=== PATIENT | female | born 1950 | race Caucasian/White ===

== ENCOUNTER 2021-12-29 09:33 | Inpatient (IN) | payer MEDICARE, BC, SELFPAY ==
[2021-12-29] VITALS (16 sets, daily range): BP systolic 113–141; BP diastolic 67–116; PULSE 85–129; RESP 10–22; TEMP 36.4–37; O2SAT 91–97; BMI 25.1; BMI 28.9
--- NOTE | 2021-12-29 09:49 | CRLHL7_ITS ---
For Patients: As a result of the Cures Act, medical imaging exams and procedure reports are released immediately into your electronic medical record. You may view this report before your referring provider. If you have questions, please contact your health care provider. INDICATION: CHEST PAIN, SOB TECHNIQUE: Chest 2 views COMPARISON: None FINDINGS: Thickening of the interlobular septa noted bilaterally with associated bronchial wall thickening in both upper lobes. No air bronchograms. No pneumothorax. Prominence of the velia. No fracture. Cardiac silhouette is upper limits normal. IMPRESSION: Multifocal bronchiolitis is present bilaterally with associated reticular prominence in both upper lobes suggesting atypical/viral infiltrates. There may be underlying fibrotic changes. Dictated by Samy Hansen MD @ 12/29/2021 11:03:00 AM (Electronically Signed)
[2021-12-29] MEDS: 0.9 % SODIUM CHLORIDE 500 ML 500 ML IV (10:15)
[2021-12-29 10:16] LABS: Lactate* 1.1 mmol/L (0.5-1.9)
[2021-12-29] MEDS: dilTIAZem 5 MG/ML inj 10 MG IVP (10:16)
[2021-12-29 10:18] LABS: Basophils Absolute Auto 0.02 K/uL (0.00-0.30); Basophils Percent Auto 0.2 % (0.0-3.0); Eosinophils Absolute Auto 0.22 K/uL (0.00-0.50); Eosinophils Percent Auto 2.2 % (0.0-7.0); Hemoglobin* 11.5 gm/dL (12.0-16.0); Immature Granulocytes Abs Auto 0.02 K/uL (0.00-0.30); Mean Corpuscular HGB Conc 31 gm/dL (32-36); Mean Corpuscular Hemoglobin 27 pg (26-34); Mean Corpuscular Volume 87 fL (80-100); Monocytes Percent Auto 7.2 % (0.0-11.0); Neutrophils Percent Auto 77.2 % (42.0-72.0); Platelet Count* 286 K/uL (140-440); RDW Coefficient of Variation % 17.4 % (11.5-15.5); Red Blood Count 4.24 m/uL (4.00-5.20); White Blood Count* 10.12 K/uL (4.50-11.00)
[2021-12-29 10:24] LABS: Slide Review Reflex No
[2021-12-29 10:34] LABS: Albumin* 2.9 g/dL (3.3-5.0); Chloride* 101 mmol/L (96-114)
[2021-12-29 10:35] LABS: Potassium* 4.6 mmol/L (3.6-5.1); Sodium* 135 mmol/L (135-149)
[2021-12-29 10:37] LABS: Alkaline Phosphatase* 143 U/L (40-150); Aspartate Amino Transferase* 40 U/L (12-35); Bilirubin Direct* 0.2 mg/dL (0.0-0.5); Bilirubin Total* 0.6 mg/dL (0.1-1.5); Blood Urea Nitrogen* 31 mg/dL (7-30); Carbon Dioxide* 31 mmol/L (20-32); Creatinine* 0.6 mg/dL (0.5-1.5); Est. Creatinine Clearance* 50.18; Estimated Glomerular Filt Rate 96 ml/min; Total Protein* 6.8 g/dL (6.0-8.3)
[2021-12-29 10:38] LABS: Alanine Aminotransferase* 19 U/L (4-35); Calcium* 8.5 mg/dL (8.4-10.6); Glucose* 175 mg/dL (60-115)
[2021-12-29 10:40] LABS: C Reactive Protein* 5.1 mg/dL (0.5-1.0)
[2021-12-29 10:49] LABS: Troponin I* 0.01 ng/mL (0.01-0.04)
[2021-12-29 10:59] LABS: PCR FLU A Negative PCR FLU A (Negative); PCR FLU B Negative PCR FLU B (Negative)
[2021-12-29 11:00] LABS: Erythrocyte SedimentationRate* 85 mm/hr (2-20)
[2021-12-29 11:02] LABS: SARS PCR* Negative SARS-CoV-2 (Negative)
[2021-12-29 11:32] LABS: INR 3.96 (0.91-1.10); Prothrombin Time 38.9 Seconds
[2021-12-29 11:48] LABS: NT Pro B Type NatriureticPept* 7440 PG/mL (0-125)
[2021-12-29 11:56] LABS: Appearance Urine Clear (Clear); Bilirubin Urine Negative (Negative); Blood Urine Negative (Negative); Color Urine Yellow (Yellow); Glucose Urine Negative (Negative); Ketones Urine Negative (Negative); Leukocyte Esterase Urine Trace (Negative); Nitrite Urine Negative (Negative); Protein Urine 3+ (Negative); Urobilinogen Urine 0.2 (0.2-1.0)
[2021-12-29 12:20] LABS: RBC Urine 0-2 (0-2); WBC Urine 0-2 (0-5)
[2021-12-29 12:21] LABS: Squamous Epithelial Cell Urine Few (None-Few)
--- NOTE | 2021-12-29 12:50 | ED_ITS ---
HPI - General Adult General Chief complaint: Arrhythmia/Palpitations Stated complaint: heart issue Time Seen by Provider: 12/29/21 09:44 History of Present Illness HPI narrative: 71-year-old female coming in today with concerns about a fast heart rate. She is a resident at [facility], nursing staff called earlier today concerned that her pulse was in the 130s and that she had mottled skin. Patient herself states that she feels fine. She denies any chest pain or shortness of breath. No headaches blurry vision. Denies any abdominal discomfort. She does not feel any palpitations or heart racing. She was recently hospitalized for UTI and sepsis. She also had AFib at that time and is on anticoagulation. She was taking metoprolol 100 mg p.o. b.i.d. and that was decreased to 75 mg p.o. b.i.d. on December 25. Related Data Home Medications Medication Instructions Recorded Confirmed acetaminophen 500 mg tablet (Pain 1,000 mg PO TID PRN 12/29/21 12/29/21 Reliever Extra Strength) aspirin 81 mg tablet,delayed 81 mg PO DAILY 12/29/21 12/29/21 release blood sugar diagnostic (OneTouch 12/29/21 12/29/21 Verio test strips) bupropion HCl 300 mg 24 hr tablet, 300 mg PO DAILY 12/29/21 12/29/21 extended release cholecalciferol (vitamin D3) 50 2,000 unit PO DAILY 12/29/21 12/29/21 mcg (2,000 unit) capsule (Vitamin D3) duloxetine 60 mg capsule,delayed 120 mg PO DAILY 12/29/21 12/29/21 release furosemide 20 mg tablet 60 mg PO QAM 12/29/21 12/29/21 gabapentin 300 mg capsule 300 mg PO DAILY 12/29/21 12/29/21 insulin glargine 100 unit/mL 30 unit subcut DAILY 12/29/21 12/29/21 subcutaneous solution insulin lispro 100 unit/mL 1 sliding scale dose continuous 12/29/21 12/29/21 subcutaneous solution subcutaneous infusion TIDWMEAL metoprolol tartrate 75 mg tablet 75 mg PO BID 12/29/21 12/29/21 rosuvastatin 10 mg tablet 10 mg PO HS 12/29/21 12/29/21 sennosides 8.6 mg tablet (senna) 8.6 mg PO BID 12/29/21 12/29/21 warfarin 1 mg tablet 0.5 mg PO QPM 12/29/21 12/29/21 warfarin 2 mg tablet 2 mg PO MOTUTH 12/29/21 12/29/21 Allergies Allergy/AdvReac Type Severity Reaction Status Date / Time atorvastatin [From Lipitor] Allergy Unknown Verified 12/29/21 09:43 metformin Allergy Unknown Verified 12/29/21 09:43 pravastatin Allergy Unknown Verified 12/29/21 09:43 Review of Systems Status of ROS: Reports: 10 or more systems reviewed and unremarkable except as noted in History and below [facility] Medical History (Updated 12/29/21 @ 13:50 by Ismael Johansen MD) Anxiety At risk for falling Cognitive impairment Coronary artery disease Depression Fibromyalgia Foot ulcer, left Gastroesophageal reflux disease Heart failure with preserved ejection fraction History of poliomyelitis Hyperlipidemia Insomnia Osteoarthritis Pulmonary disease Recurrent urinary tract infection Reflex sympathetic dystrophy Sensorineural hearing loss Type 2 diabetes mellitus Vitamin D deficiency Surgical History History of appendectomy History of arthroscopy of left knee History of colonoscopy History of coronary artery stent placement History of hysterectomy Family History (Updated 12/29/21 @ 13:45 by Ismael Johansen MD) Mother Breast cancer Coronary artery disease Diabetes Brother Coronary artery disease Social History (Updated 12/29/21 @ 13:46 by Ismael Johansen MD) Narrative: She is a former smoker having smoked from 1959 to 2021 about 1 pack of cigarettes a day. She does not drink alcohol. Code status is full. Healthcare power of disability attorney is her or her daughter Radha. Currently lives at [facility]. Her goal is to return home with her . She walks with a walker. Smoking Status: Former smoker How often do you have a drink containing alcohol: never AUDIT-C Alcohol total score: 0 Non-prescribed substance use: denies use Exam Narrative: Exam Narrative: Well-nourished well-developed elderly patient in no acute distress. Alert and oriented x3. Answers questions appropriately. Mood and affect are appropriate. Thoughts are goal oriented and rational. No tangential or magical thinking noted. Patient speaks in full sentences without needing to catch her breath. HEENT: Normocephalic atraumatic. Pupils are equally round reactive to light. Extraocular muscles are intact. Conjunctivae are moist without any icterus noted. Dry membranes. Neck is soft without any lymphadenopathy or thyromegaly. No masses are appreciated. Cardiovascular: Heart is regular rate and rhythm S1 and S2 are present without any murmurs. Lungs: Bilateral crackles are appreciated. Patient takes deep breaths without any discomfort. Abdomen: Soft and nontender nondistended with normal bowel sounds. No guarding or rebound. Extremities: Bilateral lower extremities have trace edema. Normal DP and PT pulses. Skin: Well perfused without any obvious rashes. Const: Vital Signs, click to edit/add: Vital Signs - 24 hr 12/29/21 09:37 12/29/21 09:44 12/29/21 10:20 Temperature 97.7 F 97.7 F Pulse Rate [Pulse Oximeter] 129 H 129 H 87 Respiratory Rate 14 14 14 Blood Pressure [Le ft Upper Arm] 141/116 H 141/116 H 124/67 Pulse Oximetry 91 91 94 Oxygen Delivery Me thod Room Air Room Air Room Air Oxygen Flow Rate 12/29/21 12:45 Temperature Pulse Rate [Pulse Oximeter] Respiratory Rate 20 Blood Pressure [Le ft Upper Arm] Pulse Oximetry 92 Oxygen Delivery Me thod Nasal Cannula Oxygen Flow Rate 1 Course Course Hospital Course: EKG was done upon arrival showing atrial flutter with a pulse of 119. Pulse ranged from 1 teens to the 130s. Blood pressure remained stable. IV was established and patient received 10 mg of IV Cardizem which brought her pulse into the 80s and 90s. We also started 500 mL of normal saline. BNP is elevated, CRP slightly elevated. Labs otherwise generally unremarkable. When patient would fall asleep she would desaturate into the upper 80s. Remained around 90-91% on room air while awake. Reevaluation(s) Reevaluation #1: Unfortunately patient would drop to 77% on room air with ambulation. Vital Signs Vital signs: Initial Vital Signs Temperature 97.7 F 12/29/21 09:37 Temperature Source Temporal Artery Scan 12/29/21 09:37 Pulse Rate 129 H 12/29/21 09:37 Pulse Rhythm 12/29/21 09:37 Pulse Strength 2+ Slightly Diminished 12/29/21 09:37 Respiratory Rate 14 12/29/21 09:37 Blood Pressure 141/116 H 12/29/21 09:37 Blood Pressure Mean 124 12/29/21 09:37 Blood Pressure Position Supine 12/29/21 09:37 Pulse Oximetry 91 12/29/21 09:37 Oxygen Delivery Method 12/29/21 09:37 Vital Signs Temperature 97.7 F 12/29/21 09:37 Pulse Rate 129 H 12/29/21 09:37 Respiratory Rate 14 12/29/21 09:37 Blood Pressure 141/116 H 12/29/21 09:37 Pulse Oximetry 91 12/29/21 09:37 Oxygen Delivery Method 12/29/21 09:37 Temperature 97.7 F 12/29/21 09:44 Pulse Rate 87 12/29/21 10:20 Respiratory Rate 20 12/29/21 12:45 Blood Pressure 124/67 12/29/21 10:20 Pulse Oximetry 92 12/29/21 12:45 Oxygen Delivery Method 12/29/21 12:45 Oxygen Flow Rate 1 12/29/21 12:45 Medical Decision Making MDM Narrative Medical decision making narrative: Mentally female with atrial flutter with rapid ventricular response, supratherapeutic INR, hypoxia, history of congestive heart failure. Patient will be admitted for observation today. Dr. Johansen accepting the patient. Medical Records Medical records reviewed: Yes I reviewed the patient's medical records Lab Data Lab results reviewed: Yes I reviewed the patient's lab results Labs: Lab Results 12/29/21 12/29/21 12/29/21 Range/Units 10:10 10:10 10:10 WBC 10.12 (4.50-11.00) K/uL RBC 4.24 (4.00-5.20) m/uL Hgb 11.5 L (12.0-16.0) gm/dL Hct 37.0 (33.0-51.0) % MCV 87 (80-100) fL MCH 27 (26-34) pg MCHC 31 L (32-36) gm/dL RDW Coeff of Asiya 17.4 H (11.5-15.5) % Plt Count 286 (140-440) K/uL Neut % (Auto) 77.2 H (42.0-72.0) % Lymph % (Auto) 13.0 L (20-44) % Vilas % (Auto) 7.2 (0.0-11.0) % Eos % (Auto) 2.2 (0.0-7.0) % Baso % (Auto) 0.2 (0.0-3.0) % Neut # (Auto) 7.80 H (1.7-7.0) K/uL Lymph # (Auto) 1.30 (0.90-2.90) K/uL Vilas # (Auto) 0.70 (0.00-0.90) K/UL Eos # (Auto) 0.22 (0.00-0.50) K/uL Baso # (Auto) 0.02 (0.00-0.30) K/uL Abs Immat Gran (auto) 0.02 (0.00-0.30) K/uL ESR 85 H (2-20) mm/hr INR (0.91-1.10) Sodium 135 (135-149) mmol/L Potassium 4.6 (3.6-5.1) mmol/L Chloride 101 (96-114) mmol/L Carbon Dioxide 31 (20-32) mmol/L BUN 31 H (7-30) mg/dL Creatinine 0.6 (0.5-1.5) mg/dL Estimated Creat Clear 50.18 Estimated GFR 96 ml/min Glucose 175 H (60-115) mg/dL Lactate (0.5-1.9) mmol/L Calcium 8.5 (8.4-10.6) mg/dL Total Bilirubin 0.6 (0.1-1.5) mg/dL Direct Bilirubin 0.2 (0.0-0.5) mg/dL AST 40 H (12-35) U/L ALT 19 (4-35) U/L Alkaline Phosphatase 143 (40-150) U/L Troponin I 0.01 (0.01-0.04) ng/mL C-Reactive Protein 5.1 H (0.5-1.0) mg/dL NT-Pro-B Natriuret Pep 7440 H (0-125) PG/mL Total Protein 6.8 (6.0-8.3) g/dL Albumin 2.9 L (3.3-5.0) g/dL Urine Color (Yellow) Urine Appearance (Clear) Urine pH (5.0-8.5) Ur Specific Ripley (1.000-1.030) Urine Protein (Negative) Urine Glucose (UA) (Negative) Urine Ketones (Negative) Urine Blood (Negative) Urine Nitrite (Negative) Urine Bilirubin (Negative) Urine Urobilinogen (0.2-1.0) Ur Leukocyte Esterase (Negative) Urine RBC (0-2) Urine WBC (0-5) Ur Squamous Epith Cells (None-Few) Urine Bacteria (None) SARS-CoV-2 (PCR) (Negative) Influenza Type A (PCR) (Negative) Influenza Type B (PCR) (Negative) 12/29/21 12/29/21 12/29/21 Range/Units 10:10 10:10 11:07 WBC (4.50-11.00) K/uL RBC (4.00-5.20) m/uL Hgb (12.0-16.0) gm/dL Hct (33.0-51.0) % MCV (80-100) fL MCH (26-34) pg MCHC (32-36) gm/dL RDW Coeff of Asiya (11.5-15.5) % Plt Count (140-440) K/uL Neut % (Auto) (42.0-72.0) % Lymph % (Auto) (20-44) % Vilas % (Auto) (0.0-11.0) % Eos % (Auto) (0.0-7.0) % Baso % (Auto) (0.0-3.0) % Neut # (Auto) (1.7-7.0) K/uL Lymph # (Auto) (0.90-2.90) K/uL Vilas # (Auto) (0.00-0.90) K/UL Eos # (Auto) (0.00-0.50) K/uL Baso # (Auto) (0.00-0.30) K/uL Abs Immat Gran (auto) (0.00-0.30) K/uL ESR (2-20) mm/hr INR 3.96 H (0.91-1.10) Sodium (135-149) mmol/L Potassium (3.6-5.1) mmol/L Chloride (96-114) mmol/L Carbon Dioxide (20-32) mmol/L BUN (7-30) mg/dL Creatinine (0.5-1.5) mg/dL Estimated Creat Clear Estimated GFR ml/min Glucose (60-115) mg/dL Lactate 1.1 (0.5-1.9) mmol/L Calcium (8.4-10.6) mg/dL Total Bilirubin (0.1-1.5) mg/dL Direct Bilirubin (0.0-0.5) mg/dL AST (12-35) U/L ALT (4-35) U/L Alkaline Phosphatase (40-150) U/L Troponin I (0.01-0.04) ng/mL C-Reactive Protein (0.5-1.0) mg/dL NT-Pro-B Natriuret Pep (0-125) PG/mL Total Protein (6.0-8.3) g/dL Albumin (3.3-5.0) g/dL Urine Color (Yellow) Urine Appearance (Clear) Urine pH (5.0-8.5) Ur Specific Ripley (1.000-1.030) Urine Protein (Negative) Urine Glucose (UA) (Negative) Urine Ketones (Negative) Urine Blood (Negative) Urine Nitrite (Negative) Urine Bilirubin (Negative) Urine Urobilinogen (0.2-1.0) Ur Leukocyte Esterase (Negative) Urine RBC (0-2) Urine WBC (0-5) Ur Squamous Epith Cells (None-Few) Urine Bacteria (None) SARS-CoV-2 (PCR) Negative SARS-CoV-2 (Negative) Influenza Type A (PCR) Negative PCR FLU A (Negative) Influenza Type B (PCR) Negative PCR FLU B (Negative) 12/29/21 Range/Units 11:40 WBC (4.50-11.00) K/uL RBC (4.00-5.20) m/uL Hgb (12.0-16.0) gm/dL Hct (33.0-51.0) % MCV (80-100) fL MCH (26-34) pg MCHC (32-36) gm/dL RDW Coeff of Asiya (11.5-15.5) % Plt Count (140-440) K/uL Neut % (Auto) (42.0-72.0) % Lymph % (Auto) (20-44) % Vilas % (Auto) (0.0-11.0) % Eos % (Auto) (0.0-7.0) % Baso % (Auto) (0.0-3.0) % Neut # (Auto) (1.7-7.0) K/uL Lymph # (Auto) (0.90-2.90) K/uL Vilas # (Auto) (0.00-0.90) K/UL Eos # (Auto) (0.00-0.50) K/uL Baso # (Auto) (0.00-0.30) K/uL Abs Immat Gran (auto) (0.00-0.30) K/uL ESR (2-20) mm/hr INR (0.91-1.10) Sodium (135-149) mmol/L Potassium (3.6-5.1) mmol/L Chloride (96-114) mmol/L Carbon Dioxide (20-32) mmol/L BUN (7-30) mg/dL Creatinine (0.5-1.5) mg/dL Estimated Creat Clear Estimated GFR ml/min Glucose (60-115) mg/dL Lactate (0.5-1.9) mmol/L Calcium (8.4-10.6) mg/dL Total Bilirubin (0.1-1.5) mg/dL Direct Bilirubin (0.0-0.5) mg/dL AST (12-35) U/L ALT (4-35) U/L Alkaline Phosphatase (40-150) U/L Troponin I (0.01-0.04) ng/mL C-Reactive Protein (0.5-1.0) mg/dL NT-Pro-B Natriuret Pep (0-125) PG/mL Total Protein (6.0-8.3) g/dL Albumin (3.3-5.0) g/dL Urine Color Yellow (Yellow) Urine Appearance Clear (Clear) Urine pH 7.0 (5.0-8.5) Ur Specific Ripley 1.020 (1.000-1.030) Urine Protein 3+ A (Negative) Urine Glucose (UA) Negative (Negative) Urine Ketones Negative (Negative) Urine Blood Negative (Negative) Urine Nitrite Negative (Negative) Urine Bilirubin Negative (Negative) Urine Urobilinogen 0.2 (0.2-1.0) Ur Leukocyte Esterase Trace A (Negative) Urine RBC 0-2 (0-2) Urine WBC 0-2 (0-5) Ur Squamous Epith Cells Few (None-Few) Urine Bacteria None (None) SARS-CoV-2 (PCR) (Negative) Influenza Type A (PCR) (Negative) Influenza Type B (PCR) (Negative) Imaging Data Chest x-ray: Attestation: I have reviewed the pertinent imaging results. Radiologist's impression: FINDINGS: Thickening of the interlobular septa noted bilaterally with associated bronchial wall thickening in both upper lobes. No air bronchograms. No pneumothorax. Prominence of the velia. No fracture. Cardiac silhouette is upper limits normal. IMPRESSION: Multifocal bronchiolitis is present bilaterally with associated reticular prominence in both upper lobes suggesting atypical/viral infiltrates. There may be underlying fibrotic changes. ECG Data Attestation: I personally reviewed and interpreted this ECG as follows: (Atrial flutter pulse 119) Discharge Plan Discharge Clinical Impression: Supratherapeutic INR, Atrial flutter with rapid ventricular response, Hypoxia Patient Disposition: [facility] Condition: Improved
--- NOTE | 2021-12-29 13:04 | W.PC.EDHO ---
Primary Language: Preferred Language: Orientation Status: [X] Alert & Oriented [] Slight Confusion [] Known Dx Dementia Transfers By: [X] Assist of 1; with walker and gait belt [] Assist of 2 [] Lift Active Medications Discontinued Medications Generic Name Dose Route Start Last Admin Trade Name Mario PRN Reason Stop Dose Admin Diltiazem HCl 10 mg 12/29/21 09:48 12/29/21 10:16 Diltiazem 5 Mg/Ml Inj IVP 12/29/21 09:49 10 mg ONCE ONE Administration Sodium Chloride 500 mls @ 500 mls/hr 12/29/21 09:48 12/29/21 11:15 0.9 % Sodium Chloride 500 Ml IV 12/29/21 10:47 Infused .Q1H ONE Infusion Metoprolol Succinate 25 mg 12/29/21 10:40 12/29/21 11:12 Metoprolol Succinate (Xl) 25 Mg Tab PO 12/29/21 10:41 Not Given ONCE ONE Description of Symptoms ED Triage Present Problem Pt here via EMS from [facility]--in Description transitional rehab for dx falls, UTI. ED Triage Present Problem Pt here via EMS from [facility]--in Description transitional rehab for dx falls, UTI. Staff noted mottling on LE, discoloration on UE. Also noted increase HR of 130s (Pt has hx of afib with RVR). Denies CP, SOB, any pain. Per EMS, Pt has hx of recent dx issues with ejection fraction). IV Insertion/Site Date of IV Line Insertion [ 12/29/21 Right Antecubital] Oxygen Administration Pulse Oximetry 94 Pulse Oximetry 91 Pulse Oximetry 91 Oxygen Delivery Method Room Air Oxygen Delivery Method Room Air Oxygen Delivery Method Room Air Cardiac Monitoring EKG Method [employer] EKG Method 12 Lead
--- NOTE | 2021-12-29 13:37 | P.IMHP_ITS ---
Hospitalist- H&P: HPI History of Present Illness Date Seen: 12/29/21 Chief complaint: heart issue Narrative: Danielle Gonzalez is a 71 year old female resident of [facility] who was transferred here because of tachycardia and not feeling good. She has had hospitalizations at [facility] November 02 to 11/04/2021 for sepsis due to urinary tract infection. At that time she was also evaluated and treated for atrial flutter with RVR. She was rehospitalized at [place] [id number] December 10 to 12/15/2021 with hypoglycemia and atrial flutter with RVR. She was started on digoxin in addition to her metoprolol and got good rate control. She was then transferred to [facility] for rehabilitation on metoprolol alone. Her diuretic was also discontinued. Twelve days ago furosemide 40 mg daily was started. Few days ago her metoprolol dose was increased from 100 mg daily to 75 mg twice daily. Today staff note that she had mottled cool extremities and rapid heart rate and sent her to the emergency room for evaluation. Patient notes that she is not aware of her heart racing. She does not have chest pain. She does report significant dyspnea with any exertion. She is not aware of fever, cold, cough, shortness of breath at rest, orthopnea, chest pain, nausea, vomiting, abdominal pain, urinary symptoms, diarrhea or constipation. Review of Systems Narrative: Patient reports some fatigue and malaise along with her exertional dyspnea. She otherwise is not aware of any other significant problems. [facility] Medical History (Updated 12/29/21 @ 13:50 by Ismael Johansen MD) Anxiety At risk for falling Cognitive impairment Coronary artery disease Depression Fibromyalgia Foot ulcer, left Gastroesophageal reflux disease Heart failure with preserved ejection fraction History of poliomyelitis Hyperlipidemia Insomnia Osteoarthritis Pulmonary disease Recurrent urinary tract infection Reflex sympathetic dystrophy Sensorineural hearing loss Type 2 diabetes mellitus Vitamin D deficiency Surgical History History of appendectomy History of arthroscopy of left knee History of colonoscopy History of coronary artery stent placement History of hysterectomy Family History (Updated 12/29/21 @ 13:45 by Ismael Johansen MD) Mother Breast cancer Coronary artery disease Diabetes Brother Coronary artery disease Social History (Updated 12/29/21 @ 13:46 by Ismael Johansen MD) Narrative: She is a former smoker having smoked from 1959 to 2021 about 1 pack of cigarettes a day. She does not drink alcohol. Code status is full. Healthcare power of deputy commonwealth's attorney is her or her daughter Radha. Currently lives at the [facility]. Her goal is to return home with her . She walks with a walker. Smoking Status: Former smoker How often do you have a drink containing alcohol: never AUDIT-C Alcohol total score: 0 Non-prescribed substance use: denies use Meds Home Medications and Allergies Home Medications Medication Instructions Recorded Confirmed Type acetaminophen 500 mg tablet (Pain 1,000 mg PO TID PRN 12/29/21 12/29/21 History Reliever Extra Strength) aspirin 81 mg tablet,delayed 81 mg PO DAILY 12/29/21 12/29/21 History release blood sugar diagnostic (OneTouch 12/29/21 12/29/21 History Verio test strips) bupropion HCl 300 mg 24 hr tablet, 300 mg PO DAILY 12/29/21 12/29/21 History extended release cholecalciferol (vitamin D3) 50 2,000 unit PO DAILY 12/29/21 12/29/21 History mcg (2,000 unit) capsule (Vitamin D3) duloxetine 60 mg capsule,delayed 120 mg PO DAILY 12/29/21 12/29/21 History release furosemide 20 mg tablet 60 mg PO QAM 12/29/21 12/29/21 History gabapentin 300 mg capsule 300 mg PO DAILY 12/29/21 12/29/21 History insulin glargine 100 unit/mL 30 unit subcut DAILY 12/29/21 12/29/21 History subcutaneous solution insulin lispro 100 unit/mL 12/29/21 History subcutaneous solution metoprolol tartrate 75 mg tablet 75 mg PO BID 12/29/21 12/29/21 History rosuvastatin 10 mg tablet 10 mg PO HS 12/29/21 12/29/21 History sennosides 8.6 mg tablet (senna) 8.6 mg PO BID 12/29/21 12/29/21 History warfarin 1 mg tablet mg 12/29/21 History warfarin 2 mg tablet mg 12/29/21 History Allergies Allergy/AdvReac Type Severity Reaction Status Date / Time atorvastatin [From Lipitor] Allergy Unknown Verified 12/29/21 09:43 metformin Allergy Unknown Verified 12/29/21 09:43 pravastatin Allergy Unknown Verified 12/29/21 09:43 Exam Narrative: Exam Narrative: She is alert and appears in no obvious distress. Eyes are normal. Sclerae nonicteric. Pupils are equal round reactive to light. Extraocular movements are full. No facial asymmetry. Dry mucous membranes. Neck is supple without mass or adenopathy. Respirations are diminished but without wheezing rales or rhonchi. Cardiovascular: S1, S2, irregularly irregular. Mild tachycardia. No gallop or rub. Abdomen: Bowel sounds active. Abdomen is soft without tenderness or mass. Extremities are cool to touch. She has some cyanosis of her toes and fingers. Sluggish capillary refill. Intact pulses. On inspection I notice significant asymmetry between her left leg and her right leg. She tells me this is a sequelae of childhood polio. Fairly good strength in her lower extremities bilaterally consistent with asymmetric muscle mass. No significant edema. Const: Vital Signs, click to edit/add: Vital Signs - 24 hr 12/29/21 09:37 12/29/21 09:44 12/29/21 10:20 Temperature 97.7 F 97.7 F Pulse Rate [Pulse Oximeter] 129 H 129 H 87 Respiratory Rate 14 14 14 Blood Pressure [Le ft Upper Arm] 141/116 H 141/116 H 124/67 Pulse Oximetry 91 91 94 Oxygen Delivery Me thod Room Air Room Air Room Air Documenting provider has reviewed patient's vital signs: yes Hospitalist - H&P: Result Labs Labs: Short CBC 12/29/21 Range/Units 10:10 WBC 10.12 (4.50-11.00) K/uL Hgb 11.5 L (12.0-16.0) gm/dL Hct 37.0 (33.0-51.0) % Plt Count 286 (140-440) K/uL BMP 12/29/21 10:10 Sodium 135 Potassium 4.6 Chloride 101 Carbon Dioxide 31 BUN 31 H Creatinine 0.6 Glucose 175 H Calcium 8.5 Cardiac Enzymes 12/29/21 Range/Units 10:10 Troponin I 0.01 (0.01-0.04) ng/mL Liver Function 12/29/21 Range/Units 10:10 Total Bilirubin 0.6 (0.1-1.5) mg/dL Direct Bilirubin 0.2 (0.0-0.5) mg/dL AST 40 H (12-35) U/L ALT 19 (4-35) U/L Alkaline Phosphatase 143 (40-150) U/L Albumin 2.9 L (3.3-5.0) g/dL Urine 12/29/21 Range/Units 11:40 Urine Color Yellow (Yellow) Urine Appearance Clear (Clear) Urine pH 7.0 (5.0-8.5) Ur Specific [place] 1.020 (1.000-1.030) Urine Protein 3+ A (Negative) Urine Glucose (UA) Negative (Negative) Assessment and Plan Assessment and plan (1) Atrial flutter with rapid ventricular response: Status: Acute Assessment and Plan: Heart rate poorly controlled on presentation. She received diltiazem with a good response. Blood pressure is borderline. Will continue oral diltiazem plus oral metoprolol to see if adequate rate control can be achieved. She appears clinically did dehydrated to me with her poor perfusion and dry mucous membranes. Will try a small fluid bolus to see if she is responsive to that and improving her perfusion. May help her heart rate as well. Recheck echocardiogram. May require digoxin for heart rate control depending on blood pressure response to diltiazem (2) Hypoxia: Status: Acute Assessment and Plan: Oxygen sats are borderline normal. Secondhand report indicates hypoxia at night.? Sleep apnea (3) Supratherapeutic INR: Status: Acute Assessment and Plan: Continue a warfarin to achieve a INR of 2-3 (4) Foot ulcer, left: Status: Acute Assessment and Plan: Left foot ulcer is apparently chronic. Routine wound care (5) Heart failure with preserved ejection fraction: Status: Acute Assessment and Plan: Repeat echo. In [place] there was an echocardiogram which showed preserved ejection fraction (6) At risk for falling: Status: Acute Assessment and Plan: PT and OT to assess and treat Plan She will be admitted to the hospital for evaluation and management of her atrial flutter with rapid ventricular response, heart failure, hypoxia, poor perfusion and borderline blood pressure. Total time spent today is 80 minutes, 60 minutes in coordination of care and discussing with patient and other providers management of atrial flutter with rapid ventricular response, heart failure management and addressing intravascular volume status.
[2021-12-29] MEDS: LACTATED RINGERS 1000 ML 500 ML IV (14:49)
--- NOTE | 2021-12-29 15:21 | ED.NURSE ---
1330-Pt ambulated in room with walker and gait belt on RA: Sats 77% while ambulating. Returned to bed, Sats 90-93% while on RA. Report given to M/S RN. Pt to M/S via w/c by LINDA. updated.
[2021-12-29] MEDS: ACETAMINOPHEN 500 MG TABLET 1000 MG PO (16:45)
[2021-12-29] MEDS: dilTIAZem 30 MG TABLET PO (16:46)
--- NOTE | 2021-12-29 18:38 | PC.NURSE ---
End of Shift: Patient pleasant and cooperative, A&Ox3. Patient 1 assist, walker, gb. Patient vitally stable, lungs with light crackles in bilateral bases, BS WNL, IV SL. Patient is tachycardic 90-120 prn diltiazem given, tele=A.fib w/RVR. Patient on 2 L of oxygen by [facility] with sat in the low 90's. Patient tolerating regular diet, and has urinated once. Tylenol given for overall comfort, patient rates knee pain 7-8/10.
[2021-12-29] MEDS: METOPROLOL SUCCINATE (XL) 25 MG TAB 75 MG PO (21:09)
[2021-12-29] MEDS: ROSUVASTATIN CALCIUM 10 MG TABLET PO (21:10)
[2021-12-29] MEDS: SENNOSIDES 1 TAB TABLET PO (21:10)
[2021-12-30] VITALS (14 sets, daily range): BP systolic 95–147; BP diastolic 52–102; PULSE 85–138; RESP 14–20; TEMP 36.3–36.9; O2SAT 91–97
[2021-12-30] MEDS: dilTIAZem 30 MG TABLET PO ×4 (02:02→22:33)
[2021-12-30] MEDS: METOPROLOL TARTRATE 1 MG/ML inj 5 MG IVP ×4 (03:45→22:55)
--- NOTE | 2021-12-30 06:28 | PC.NURSE ---
A x 1 with gb and walker. No c/o pain. 1x incontinent episode. No BM. 1L O2 via NC to keep sats > 88%. HR was maintaining 130s after PRN 30mg Diltiazem given, Ralph called, received order for 5mg Metoprolol IVP. Since admin, HR has been 70s-90s. Tele = A Flutter. Mepi on left foot CDI. Extremities cool to touch, warm blanket applied.
[2021-12-30] MEDS: ACETAMINOPHEN 500 MG TABLET 1000 MG PO (07:44)
[2021-12-30 08:29] LABS: Basophils Absolute Auto 0.01 K/uL (0.00-0.30); Basophils Percent Auto 0.1 % (0.0-3.0); Eosinophils Absolute Auto 0.18 K/uL (0.00-0.50); Eosinophils Percent Auto 2.1 % (0.0-7.0); Hematocrit 37.8 % (33.0-51.0); Hemoglobin* 11.6 gm/dL (12.0-16.0); Immature Granulocytes Abs Auto 0.02 K/uL (0.00-0.30); Lymphocytes Percent Auto 12.5 % (20-44); Mean Corpuscular HGB Conc 31 gm/dL (32-36); Mean Corpuscular Hemoglobin 28 pg (26-34); Mean Corpuscular Volume 90 fL (80-100); Monocytes Percent Auto 7.5 % (0.0-11.0); Neutrophils Percent Auto 77.6 % (42.0-72.0); Platelet Count* 255 K/uL (140-440); RDW Coefficient of Variation % 17.4 % (11.5-15.5); Red Blood Count 4.21 m/uL (4.00-5.20); White Blood Count* 8.77 K/uL (4.50-11.00)
[2021-12-30 08:30] LABS: Slide Review Reflex No
[2021-12-30 08:47] LABS: INR 1.45 (0.91-1.10)
[2021-12-30 08:55] LABS: Chloride* 102 mmol/L (96-114)
[2021-12-30 08:56] LABS: Sodium* 138 mmol/L (135-149)
[2021-12-30 08:58] LABS: Carbon Dioxide* 27 mmol/L (20-32); Creatinine* 0.6 mg/dL (0.5-1.5); Est. Creatinine Clearance* 50.18; Estimated Glomerular Filt Rate 96 ml/min
[2021-12-30 08:59] LABS: Blood Urea Nitrogen* 27 mg/dL (7-30); Calcium* 8.3 mg/dL (8.4-10.6); Glucose* 181 mg/dL (60-115); Magnesium* 1.4 mg/dL (1.5-2.6)
[2021-12-30] MEDS: GABAPENTIN 300 MG CAPSULE PO (09:12)
[2021-12-30] MEDS: METOPROLOL SUCCINATE (XL) 25 MG TAB 75 MG PO (09:13)
[2021-12-30] MEDS: ASPIRIN 81 MG TABLET EC PO (09:13)
[2021-12-30] MEDS: dilTIAZem 120 MG CAP.ER.24H PO ×2 (09:14→20:54)
[2021-12-30] MEDS: buPROPion XL 150 MG TABLET 300 MG PO (09:14)
[2021-12-30] MEDS: SENNOSIDES 1 TAB TABLET PO ×2 (09:14→20:54)
[2021-12-30] MEDS: SODIUM CHLORIDE 0.9 % (FLUSH) 10 ML SYRINGE 5 ML IVF ×3 (10:03→22:33)
--- NOTE | 2021-12-30 11:00 | CRLHL7_ITS ---
For Patients: As a result of the Century Cures Act, medical imaging exams and procedure reports are released immediately into your electronic medical record. You may view this report before your referring provider. If you have questions, please contact your health care provider. Indication: Sepsis Technique: Volumetric multidetector CT images of the chest, abdomen, and pelvis were obtained after the administration of intravenous contrast. 95 cc Isovue 370 low osmolar intravenous contrast Comparison: None available. FINDINGS: CHEST The thoracic inlet is unremarkable. The thyroid gland is within normal limits. The thoracic aorta is nonaneurysmal. There is no filling defect to suggest pulmonary embolus. There are reactive, enlarged mediastinal and hilar lymph nodes within the prevascular space, velia and subcarinal spaces. There is no axillary adenopathy. There are bibasilar pleural effusions with adjacent compressive atelectasis. There is mild to moderate emphysematous changes of the upper lobes. The thoracic osseus structures are intact without fracture, lytic, or blastic lesion. The thoracic vertebral body heights are grossly maintained in satisfactory alignment without evidence of displaced fracture. ABDOMEN AND PELVIS The liver is mildly enlarged with minimal hepatic steatosis. There is no focal abnormality. There is a moderately heterogeneous appearance of the spleen with focal hypodensity of the anterior left spleen commensurate with questionable splenic infarcts. The gallbladder is unremarkable without radiopaque calculus. There is no intrahepatic or common ductal dilatation. There is mild thickening of the gastric antrum with minimal gastric mucosal hyperemia. The pancreas demonstrates moderate pancreatic atrophy. The adrenal glands are unremarkable without evidence of adenoma. The kidneys are preserved and corticomedullary differentiation. There is no hydronephrosis or radiopaque calculus. There is a moderate amount of intracolonic stool. There is minimal distal colonic diverticulosis. There is no significant colonic inflammatory change. The small bowel is decompressed. The appendix is unremarkable without significant inflammatory change. The abdominal aorta is nonaneurysmal with no significant atherosclerotic disease. There is prior hysterectomy. There is no pathologically enlarged epigastric, mesenteric, retroperitoneal, or pelvic sidewall lymph node. There is a small fat containing ventral hernia along the anteroinferior right abdominal wall. There is no free air or free fluid. The visualized osseous structures are grossly intact without evidence of displaced fracture, lytic or blastic lesion. There is somewhat age indeterminate compression fracture and vertebral plana configuration of the L1 vertebral body with trace retropulsion. There is minimal anterolisthesis of L4 on L5. There is moderate facet arthrosis. Impression: 1. Bibasilar pleural effusions with adjacent compressive atelectasis and/or infiltrates with moderate appearing reactive mediastinal and hilar lymph nodes. Ground-glass and airspace opacities are seen within the bilateral lung apices. 2. Demonstration of a wedge-shaped hypodensity within the anterior superior spleen which may represent a splenic infarct. 3. Mild chronic gastritis changes. 4. Otherwise, no definite acute intra-abdominal abnormalities are appreciated. Please note that all CT scans at this facility use dose modulation, iterative reconstruction, and/or weight-based dosing when appropriate to reduce radiation dose to as low as reasonably achievable. Dictated by Zia Severino MD @ 12/30/2021 2:37:32 PM (Electronically Signed)
--- NOTE | 2021-12-30 11:07 | PC.SOCIAL ---
Spoke with pt.'s spouse Aramis who wants pt. to return to the [facility] but he does not think he wants to pay to hold her bed. He is going to think about it and decide later. He will update social work if he does not hold the bed.
[2021-12-30] MEDS: 0.9 % SODIUM CHLORIDE 250 ml IV (11:35)
--- NOTE | 2021-12-30 12:48 | P.IMPN_ITS ---
Progress Note: A&P Assessment and plan (1) Atrial flutter with rapid ventricular response: Status: Acute Assessment and Plan: This has been difficult to control. Evaluating for underlying medical problem driving her tachycardia. Continue metoprolol and diltiazem for management of atrial fibrillation in heart failure with preserved ejection fraction and LVH (2) Hypoxia: Status: Acute Assessment and Plan: Uncertain if this is acute on chronic. Continue oxygen supplementation and evaluation. (3) Heart failure with preserved ejection fraction: Status: Acute Assessment and Plan: Her volume status appears to be appropriate. Her heart rate control is inadequate. Continue to work on that primarily. Hold diuretics for now (4) Foot ulcer, left: Status: Acute Assessment and Plan: Routine wound care (5) At risk for falling: Status: Acute Assessment and Plan: PT and OT to evaluate. (6) Dehydration: Status: Acute Assessment and Plan: Overall appears to have too much diuresis prior to admission. Continue to hold diuretics for now. May need the low does furosemide at discharge (7) Dementia: Status: Acute Assessment and Plan: Fairly severe. Likely will need 24/ supervision. (8) Chronic anticoagulation: Status: Acute Assessment and Plan: Anticoagulation is uncertain right now I think the current INR is consistent with the [facility] INR and is likely correct. Goal INR of 2. (9) Pulmonary disease: Problem details: CT imaging from October and current imaging suggest component of COPD as well as pulmonary fibrosis. Status: Acute Assessment and Plan: Trial of treatment for COPD with nebulizers Time Spent With Patient Total time spent: Total time spent today is 45 minutes, 30 minutes in coordination of care and discussing with patient and and other providers management of AFib flutter, blood pressure, COPD, hypoxia, dementia Subjective Date Seen: 12/30/21 Interval history: 71-year-old female seen in followup of hospital admission for atrial flutter with rapid ventricular response, overall decline in health, hypoxia. She has no concerns today but reports she does not feel well. She was able to eat some this morning. She is not aware of shortness of breath but she has required oxygen in the hospital. According to her she has been intermittently getting oxygen in the [place] as well. Previous notes indicated that she was needing oxygen at night. She has a 60 pack-year history of smoking and does not carry a diagnosis of COPD but imaging suggest underlying COPD as well. Overnight she was treated with metoprolol 75 mg twice daily and diltiazem 30 mg every 4 hours as needed. Despite getting fairly regular dosing she has had worsening of her tachycardia. On admission her INR was 4. This was notable because the [place] [facility] indicated it was 1.5. Today without any 3rd treatment as her INR is 1.4. This suggests the reading done yesterday was erroneous. Echocardiogram performed yesterday was relatively unremarkable. Ejection fraction of 55-60%. No significant valvular disease. No marked pulmonary hypertension. Hill today showed a score of 8/30 Exam Narrative: Exam Narrative: She is alert and appears in no distress. Answers to questions are relatively limited. She is oriented to being in the hospital. Is not oriented to her circumstances. She denies any specific complaints at this time other than generally not feeling good. Head is without trauma. Eyes normal. Oropharynx normal. Neck is supple without mass or adenopathy. Respirations are diffusely diminished but clear to auscultation. No wheezing rales rhonch. Cardiovascular: S1, S2, irregularly irregular tachycardia. Abdomen is soft without tenderness or mass. Extremities without significant edema. Ulcer on her foot appears better today. Const: Vital Signs, click to edit/add: Vital Signs - 24 hr 12/29/21 14:07 12/29/21 14:07 12/29/21 15:15 Temperature 97.6 F 97.6 F Pulse Rate Pulse Rate [Pulse Oximeter] 110 H 87 Respiratory Rate 20 20 20 Blood Pressure [Le ft Upper Arm] 124/67 Blood Pressure [Ri ght Arm] 118/74 Pulse Oximetry 93 96 Oxygen Delivery Me thod Nasal Cannula Nasal Cannula Oxygen Flow Rate 1 1 12/29/21 13:00 12/29/21 15:37 12/29/21 15:39 Temperature Pulse Rate 99 Pulse Rate [Pulse Oximeter] 87 Respiratory Rate 16 20 Blood Pressure [Le ft Upper Arm] 113/91 H Blood Pressure [Ri ght Arm] Pulse Oximetry 91 Oxygen Delivery Me thod Room Air Oxygen Flow Rate 12/29/21 15:00 12/29/21 19:00 12/29/21 22:40 Temperature 98.6 F 97.9 F Pulse Rate Pulse Rate [Pulse Oximeter] 125 H 85 85 Respiratory Rate 20 22 22 Blood Pressure [Le ft Upper Arm] Blood Pressure [Ri ght Arm] 125/90 H 116/68 Pulse Oximetry 96 97 Oxygen Delivery Me thod Nasal Cannula Nasal Cannula Oxygen Flow Rate 1 1 12/29/21 23:00 12/29/21 23:09 12/30/21 02:01 Temperature 97.6 F 97.6 F Pulse Rate 89 Pulse Rate [Pulse Oximeter] 97 122 H Respiratory Rate 20 20 Blood Pressure [Le ft Upper Arm] Blood Pressure [Ri ght Arm] 135/90 H 133/96 H Pulse Oximetry 97 97 Oxygen Delivery Me thod Nasal Cannula Nasal Cannula Oxygen Flow Rate 1 1 12/30/21 03:32 12/30/21 02:44 12/30/21 07:22 Temperature Pulse Rate 138 H 122 H Pulse Rate [Pulse Oximeter] 138 H Respiratory Rate 20 Blood Pressure [Le ft Upper Arm] Blood Pressure [Ri ght Arm] 142/102 H Pulse Oximetry 92 Oxygen Delivery Me thod Nasal Cannula Oxygen Flow Rate 1.5 12/30/21 07:00 12/30/21 07:00 12/30/21 11:00 Temperature 97.7 F 97.5 F L Pulse Rate Pulse Rate [Pulse Oximeter] 105 H 105 H 114 H Respiratory Rate 14 14 20 Blood Pressure [Le ft Upper Arm] Blood Pressure [Ri ght Arm] 110/69 126/92 H Pulse Oximetry 93 91 Oxygen Delivery Me thod Nasal Cannula Room Air Oxygen Flow Rate 1 Documenting provider has reviewed patient's vital signs: yes Labs Labs: Laboratory Results - last 24 hr 12/29/21 12/30/21 12/30/21 15:20 08:15 08:15 WBC 8.77 RBC 4.21 Hgb 11.6 L Hct 37.8 MCV 90 MCH 28 MCHC 31 L RDW Coeff of Asiya 17.4 H Plt Count 255 Neut % (Auto) 77.6 H Lymph % (Auto) 12.5 L [place] % (Auto) 7.5 Eos % (Auto) 2.1 Baso % (Auto) 0.1 Neut # (Auto) 6.80 Lymph # (Auto) 1.10 [place] # (Auto) 0.70 Eos # (Auto) 0.18 Baso # (Auto) 0.01 Abs Immat Gran (auto) 0.02 INR 1.45 H Sodium Potassium Chloride Carbon Dioxide BUN Creatinine Estimated Creat Clear Estimated GFR Glucose Lactate 1.0 Calcium Magnesium TSH 12/30/21 12/30/21 08:15 08:15 WBC RBC Hgb Hct MCV MCH MCHC RDW Coeff of Asiya Plt Count Neut % (Auto) Lymph % (Auto) [place] % (Auto) Eos % (Auto) Baso % (Auto) Neut # (Auto) Lymph # (Auto) [place] # (Auto) Eos # (Auto) Baso # (Auto) Abs Immat Gran (auto) INR Sodium 138 Potassium 5.0 Chloride 102 Carbon Dioxide 27 BUN 27 Creatinine 0.6 Estimated Creat Clear 50.18 Estimated GFR 96 Glucose 181 H Lactate Calcium 8.3 L Magnesium 1.4 L TSH 3.770
[2021-12-30] MEDS: IPRAT-ALBUT 0.5-2.5 MG/3 ML NEB 1 NEB IH ×2 (16:21→20:54)
[2021-12-30] MEDS: WARFARIN 3 MG TABLET PO (18:03)
--- NOTE | 2021-12-30 19:25 | PC.NURSE ---
Addendum entered by Lillie Hilario RN 12/30/21 19:30: End of Shift: Patient pleasant and cooperative, patient could not identify where she was this morning. Patient vitally stable, lung bases with crackles, BS WNL, IV's SL. Patient has been on and off of 1 L of oxygen by nasal cannula, oxygen has been needed when eating and sleeping, patient is a mouth breather. Patient currently on RA with sats in the low 90's. Patient's HR has currently been in the 80-90's but throughout the day patient has increased to 130's. PRN diltiazem given x2 and PRN metoprolol given once, there was also an additional 1 time dose of metoprolol given per MD order. Patient 1 assist, edd barber. Original Note: End of Shift: Patient pleasant and cooperative, patient could not identify where she was this morning. Patient vitally stable, lung bases with crackles, BS WNL, IV's SL. Patient has been on and off of 1 L of oxygen by nasal cannula, oxygen has been needed when eating and sleeping, patient is a mouth breather. Patient's HR has currently been in the 80-90's but throughout the day patient has increased to 130's. PRN diltiazem given x2 and PRN metoprolol given once, there was also an additional 1 time dose of metoprolol given per MD order. Patient
[2021-12-30] MEDS: METOPROLOL SUCCINATE (XL) 100 MG TAB PO (20:54)
[2021-12-30] MEDS: ROSUVASTATIN CALCIUM 10 MG TABLET PO (20:54)
[2021-12-31] VITALS (12 sets, daily range): BP systolic 107–155; BP diastolic 70–105; PULSE 67–117; RESP 18–22; TEMP 35.8–36.6; O2SAT 89–94
--- NOTE | 2021-12-31 05:19 | PC.NURSE ---
[id number]: patient up with assist X1 walker and gait belt. requires .5-1LPM oxygen via NC to maintain sats. patient fatigued, tele has shown A fib to flutter entire shift with a rate 60s-120s, see EMAR for meds given and associated VS.
[2021-12-31] MEDS: METOPROLOL TARTRATE 1 MG/ML inj 5 MG IVP (06:12)
[2021-12-31] MEDS: dilTIAZem 30 MG TABLET PO (06:54)
[2021-12-31 07:09] LABS: Basophils Absolute Auto 0.01 K/uL (0.00-0.30); Basophils Percent Auto 0.1 % (0.0-3.0); Eosinophils Absolute Auto 0.16 K/uL (0.00-0.50); Eosinophils Percent Auto 2.1 % (0.0-7.0); Hematocrit 36.6 % (33.0-51.0); Hemoglobin* 11.4 gm/dL (12.0-16.0); Immature Granulocytes Abs Auto 0.01 K/uL (0.00-0.30); Lymphocytes Percent Auto 14.6 % (20-44); Mean Corpuscular HGB Conc 31 gm/dL (32-36); Mean Corpuscular Hemoglobin 27 pg (26-34); Mean Corpuscular Volume 87 fL (80-100); Monocytes Percent Auto 9.2 % (0.0-11.0); Neutrophils Percent Auto 73.9 % (42.0-72.0); Platelet Count* 273 K/uL (140-440); RDW Coefficient of Variation % 17.3 % (11.5-15.5); Red Blood Count 4.23 m/uL (4.00-5.20); White Blood Count* 7.75 K/uL (4.50-11.00)
[2021-12-31 07:10] LABS: Slide Review Reflex No
[2021-12-31 07:25] LABS: Chloride* 101 mmol/L (96-114); INR 1.45 (0.91-1.10); Potassium* 4.3 mmol/L (3.6-5.1); Sodium* 138 mmol/L (135-149)
[2021-12-31 07:28] LABS: Blood Urea Nitrogen* 25 mg/dL (7-30); Carbon Dioxide* 32 mmol/L (20-32); Creatinine* 0.5 mg/dL (0.5-1.5); Est. Creatinine Clearance* 50.18; Estimated Glomerular Filt Rate 100 ml/min
[2021-12-31 07:29] LABS: Calcium* 8.8 mg/dL (8.4-10.6); Glucose* 74 mg/dL (60-115); Magnesium* 2.2 mg/dL (1.5-2.6)
[2021-12-31 07:31] LABS: C Reactive Protein* 6.6 mg/dL (0.5-1.0)
[2021-12-31 07:44] LABS: D Dimer Quantitative* 1.64 ug/ml (0.00-0.50)
[2021-12-31] MEDS: buPROPion XL 150 MG TABLET 300 MG PO (09:07)
[2021-12-31] MEDS: METOPROLOL SUCCINATE (XL) 100 MG TAB PO ×2 (09:08→20:48)
[2021-12-31] MEDS: IPRAT-ALBUT 0.5-2.5 MG/3 ML NEB 1 NEB IH ×3 (09:08→20:48)
[2021-12-31] MEDS: SENNOSIDES 1 TAB TABLET PO ×2 (09:08→20:48)
[2021-12-31] MEDS: GABAPENTIN 300 MG CAPSULE PO (09:09)
[2021-12-31] MEDS: FUROSEMIDE 10 MG/ML inj 20 MG IVP ×2 (09:09→16:02)
[2021-12-31] MEDS: dilTIAZem 120 MG CAP.ER.24H PO ×2 (09:09→20:48)
[2021-12-31] MEDS: ASPIRIN 81 MG TABLET EC PO (09:09)
[2021-12-31] MEDS: MAGNESIUM OXIDE 400 MG TABLET PO (09:09)
[2021-12-31] MEDS: SODIUM CHLORIDE 0.9 % (FLUSH) 10 ML SYRINGE 5 ML IVF ×3 (09:12→20:59)
[2021-12-31] MEDS: WARFARIN 3 MG TABLET PO (09:19)
[2021-12-31] MEDS: polyethylene glycoL 3350 17 GM PACK PO (09:20)
--- NOTE | 2021-12-31 12:43 | PC.SOCIAL ---
Sent pt.'s information over to the [facility]. They have openings and can accept pt. back when ready for discharge, most likely Wednesday. Updated pt.'s spouse rAamis at [phone] who plans to transport pt. when ready for discharge.
--- NOTE | 2021-12-31 14:43 | P.IMPN_ITS ---
Progress Note: A&P Assessment and plan (1) Atrial flutter with rapid ventricular response: Status: Acute Assessment and Plan: Improved. Continuing to titrate diltiazem to desired effect. (2) Hypoxia: Status: Acute Assessment and Plan: Stable to improved. Continue to monitor as she receives diuresis. (3) Heart failure with preserved ejection fraction: Status: Acute Assessment and Plan: Heart failure will likely improve with better rate control. (4) Foot ulcer, left: Status: Acute Assessment and Plan: Stable (5) At risk for falling: Status: Acute Assessment and Plan: Chronic (6) Dehydration: Status: Acute Assessment and Plan: Intravascular volume depletion with extravascular volume excess (7) Dementia: Status: Acute Assessment and Plan: Stable and chronic (8) Chronic anticoagulation: Status: Acute Assessment and Plan: Continue to titrate warfarin dose to therapeutic INR of 2-3 (9) Pulmonary disease: Problem details: CT imaging from October and current imaging suggest component of COPD as well as pulmonary fibrosis. Status: Acute Assessment and Plan: Oxygen and inhaled bronchodilators for COPD and other chronic lung disease Plan Continue in hospital for another day for evaluation monitoring of heart disease, a flutter, diuresis Time Spent With Patient Total time spent: Total time spent today is 40 minutes, 30 minutes in coordination of care and discussing with other providers management of heart rate and heart failure Subjective Date Seen: 12/31/21 Interval history: 71-year-old female seen in followup of atrial flutter with rapid ventricular response, weakness, hypoxia, dementia. Patient reports having no pain or dyspnea today. She is still requiring oxygen. CT scan obtained yesterday did show moderately large pleural effusions likely due to heart failure. Overnight her heart rate control has improved. Exam Narrative: Exam Narrative: She is alert and appears in no distress. Respirations with diminished breath sounds at lung bases. She has crackles up about correction. No significant wheezing. Cardiovascular: S1, S2, irregularly irregular. No murmur gallop or rub. Abdomen is soft without tenderness or mass. Extremities without significa nt edema. Const: Vital Signs, click to edit/add: Vital Signs - 24 hr 12/30/21 15:00 12/30/21 15:00 12/30/21 16:08 Temperature 97.4 F L Pulse Rate 85 Pulse Rate [Pulse Oximeter] 105 H 105 H Respiratory Rate 16 16 Blood Pressure [Ri ght Arm] 103/52 L Pulse Oximetry 93 Oxygen Delivery Me thod Room Air Oxygen Flow Rate 12/30/21 16:10 12/30/21 16:12 12/30/21 20:00 Temperature 98.4 F Pulse Rate Pulse Rate [Pulse Oximeter] 106 H 106 H 98 Respiratory Rate 16 Blood Pressure [Ri ght Arm] 96/54 L 95/52 L 97/84 Pulse Oximetry 93 Oxygen Delivery Me thod Room Air Oxygen Flow Rate 1 12/30/21 20:59 12/30/21 22:35 12/30/21 23:00 Temperature 98 F Pulse Rate 101 H Pulse Rate [Pulse Oximeter] 114 H Respiratory Rate 16 Blood Pressure [Ri ght Arm] 147/86 H 136/90 H Pulse Oximetry 91 Oxygen Delivery Me thod Nasal Cannula Oxygen Flow Rate 1 12/30/21 23:00 12/31/21 02:00 12/31/21 06:00 Temperature Pulse Rate Pulse Rate [Pulse Oximeter] 114 H 67 117 H Respiratory Rate 16 18 Blood Pressure [Ri ght Arm] 155/105 H Pulse Oximetry 90 Oxygen Delivery Me thod Nasal Cannula Oxygen Flow Rate 0.5 12/31/21 06:57 12/31/21 07:45 12/31/21 07:45 Temperature Pulse Rate 116 H Pulse Rate [Pulse Oximeter] 116 H Respiratory Rate 22 Blood Pressure [Ri ght Arm] 131/96 H Pulse Oximetry Oxygen Delivery Me thod Oxygen Flow Rate 12/31/21 07:30 Temperature 96.4 F L Pulse Rate Pulse Rate [Pulse Oximeter] 86 Respiratory Rate 22 Blood Pressure [Ri ght Arm] 135/92 H Pulse Oximetry 92 Oxygen Delivery Me thod Room Air Oxygen Flow Rate Documenting provider has reviewed patient's vital signs: yes Labs Labs: Laboratory Results - last 24 hr 12/30/21 12/31/21 12/31/21 08:15 06:22 06:22 WBC 7.75 RBC 4.23 Hgb 11.4 L Hct 36.6 MCV 87 MCH 27 MCHC 31 L RDW Coeff of Asiya 17.3 H Plt Count 273 Neut % (Auto) 73.9 H Lymph % (Auto) 14.6 L [place] % (Auto) 9.2 Eos % (Auto) 2.1 Baso % (Auto) 0.1 Neut # (Auto) 5.70 Lymph # (Auto) 1.10 [place] # (Auto) 0.70 Eos # (Auto) 0.16 Baso # (Auto) 0.01 Abs Immat Gran (auto) 0.01 INR 1.45 H D-Dimer Quant (PE/DVT) Cancelled 1.64 H Sodium Potassium Chloride Carbon Dioxide BUN Creatinine Estimated Creat Clear Estimated GFR Glucose Calcium Magnesium C-Reactive Protein 12/31/21 06:22 WBC RBC Hgb Hct MCV MCH MCHC RDW Coeff of Asiya Plt Count Neut % (Auto) Lymph % (Auto) [place] % (Auto) Eos % (Auto) Baso % (Auto) Neut # (Auto) Lymph # (Auto) [place] # (Auto) Eos # (Auto) Baso # (Auto) Abs Immat Gran (auto) INR D-Dimer Quant (PE/DVT) Sodium 138 Potassium 4.3 Chloride 101 Carbon Dioxide 32 BUN 25 Creatinine 0.5 Estimated Creat Clear 50.18 Estimated GFR 100 Glucose 74 Calcium 8.8 Magnesium 2.2 C-Reactive Protein 6.6 H
[2021-12-31] MEDS: POTASSIUM CHLORIDE 10 MEQ CAPSULE ER PO (18:10)
--- NOTE | 2021-12-31 18:31 | PC.NURSE ---
shift note: pt up 1/walker and needing encouragement to have meals in recliner. pt denies pain. pt did have low blood sugar of 75 this a.m. Pt was drowsy and slightly diaphoretic at this time. pt received 4 oz of OJ with [address] Johansen notified. Rechecked blood sugar within 30mins with result 92. vss stable. pt afeb. Pt has 2+ edema to tops of feet. multi bruises to bilat u/e. HR per tele 60's-70's at flutter. LS with crkls bilat. pt using 0.5L of O2 to keep sats >90%. IV x2 patent
[2021-12-31] MEDS: ROSUVASTATIN CALCIUM 10 MG TABLET PO (20:48)
[2022-01-01] VITALS (10 sets, daily range): BP systolic 112–144; BP diastolic 65–82; PULSE 60–88; RESP 16–24; TEMP 36.4–37; O2SAT 91–94
--- NOTE | 2022-01-01 06:35 | PC.NURSE ---
Alert to self and place. Pleasantly confused. Vitals stable. No signs of pain noted. Remained on Afib overnight. No PRNs administered. Remained on 1 L NC; not tolerating weaning. Assist of one with a walker to the recliner. No concerns noted
[2022-01-01 08:32] LABS: Basophils Absolute Auto 0.02 K/uL (0.00-0.30); Basophils Percent Auto 0.2 % (0.0-3.0); Eosinophils Percent Auto 2.2 % (0.0-7.0); Hematocrit 38.4 % (33.0-51.0); Hemoglobin* 11.9 gm/dL (12.0-16.0); Immature Granulocytes Abs Auto 0.02 K/uL (0.00-0.30); Lymphocytes Percent Auto 11.9 % (20-44); Mean Corpuscular HGB Conc 31 gm/dL (32-36); Mean Corpuscular Hemoglobin 27 pg (26-34); Mean Corpuscular Volume 88 fL (80-100); Neutrophils Percent Auto 76.5 % (42.0-72.0); Platelet Count* 301 K/uL (140-440); RDW Coefficient of Variation % 17.5 % (11.5-15.5); Red Blood Count 4.37 m/uL (4.00-5.20); White Blood Count* 9.14 K/uL (4.50-11.00)
[2022-01-01 08:40] LABS: Slide Review Reflex No
[2022-01-01 08:46] LABS: Chloride* 100 mmol/L (96-114); Sodium* 138 mmol/L (135-149)
[2022-01-01 08:47] LABS: Potassium* 4.7 mmol/L (3.6-5.1)
[2022-01-01 08:49] LABS: Creatinine* 0.6 mg/dL (0.5-1.5); Est. Creatinine Clearance* 50.18; Estimated Glomerular Filt Rate 96 ml/min
[2022-01-01 08:50] LABS: Blood Urea Nitrogen* 24 mg/dL (7-30); Carbon Dioxide* 31 mmol/L (20-32); Glucose* 104 mg/dL (60-115)
[2022-01-01 08:53] LABS: C Reactive Protein* 5.5 mg/dL (0.5-1.0)
[2022-01-01 08:58] LABS: INR 2.68 (0.91-1.10); Prothrombin Time 28.8 Seconds
[2022-01-01] MEDS: ASPIRIN 81 MG TABLET EC PO (09:15)
[2022-01-01] MEDS: dilTIAZem 120 MG CAP.ER.24H PO ×2 (09:15→20:29)
[2022-01-01] MEDS: POTASSIUM CHLORIDE 10 MEQ CAPSULE ER PO ×2 (09:15→18:26)
[2022-01-01] MEDS: MAGNESIUM OXIDE 400 MG TABLET PO (09:15)
[2022-01-01] MEDS: METOPROLOL SUCCINATE (XL) 100 MG TAB PO ×2 (09:16→20:29)
[2022-01-01] MEDS: buPROPion XL 150 MG TABLET 300 MG PO (09:16)
[2022-01-01] MEDS: GABAPENTIN 300 MG CAPSULE PO (09:16)
[2022-01-01] MEDS: SENNOSIDES 1 TAB TABLET PO ×2 (09:17→20:29)
[2022-01-01] MEDS: IPRAT-ALBUT 0.5-2.5 MG/3 ML NEB 1 NEB IH ×3 (09:17→20:30)
[2022-01-01] MEDS: polyethylene glycoL 3350 17 GM PACK PO (09:17)
[2022-01-01] MEDS: FUROSEMIDE 10 MG/ML inj 20 MG IVP ×2 (09:17→12:20)
[2022-01-01] MEDS: SODIUM CHLORIDE 0.9 % (FLUSH) 10 ML SYRINGE 5 ML IVF ×2 (12:14→20:30)
[2022-01-01] MEDS: predniSONE 20 MG TABLET 40 MG PO (12:18)
--- NOTE | 2022-01-01 12:59 | PM.IMPN1 ---
Progress Note: A&P Assessment and plan (1) Atrial flutter with rapid ventricular response: Status: Acute Assessment and Plan: Rate control is better a on current medications, metoprolol 100 mg b.i.d. and diltiazem 120 mg b.i.d.. Blood pressure is tolerating this fairly well. (2) Hypoxia: Status: Acute Assessment and Plan: Likely due to combination of COPD and heart failure and pleural effusions. Anticipate improvement over the next few weeks as she gets diuresis (3) Heart failure with preserved ejection fraction: Status: Acute Assessment and Plan: Continue diuresis with IV furosemide now and p.o. furosemide on discharge. Continue aggressive rate control. (4) Foot ulcer, left: Status: Acute Assessment and Plan: Stable (5) At risk for falling: Status: Acute Assessment and Plan: Chronic. Appears to be needing standby assist of 1 with her walker (6) Dementia: Status: Acute Assessment and Plan: Chronic (7) Chronic anticoagulation: Status: Acute Assessment and Plan: INR now therapeutic (8) Pulmonary disease: Problem details: CT imaging from October and current imaging suggest component of COPD as well as pulmonary fibrosis. Status: Acute Assessment and Plan: Trial of steroids to see if this helps her breathing (9) Polymyalgia rheumatica: Problem details: Patient has elevated inflammatory markers with prominent fatigue and malaise, axial aching. History of fibromyalgia as well. Would like a trial of steroids to see if she responds which would support a diagnosis of polymyalgia rheumatica Status: Acute Time Spent With Patient Total time spent: Total time spent today is 35 minutes, 20 minutes in coordination of care and discussing with patient and and other providers management of hypoxia weakness heart rate control and heart failure management. Subjective Date Seen: 01/01/22 Interval history: 71-year-old female seen in followup of hospitalization for atrial flutter with rapid ventricular response, heart failure with preserved ejection fraction, dementia, fatigue, achiness and malaise. Patient reports ongoing symptoms of fatigue. She is not aware of shortness of breath though still requiring 1 L of oxygen to maintain her so O2 sats in the low 90s. She is not having any chest pain. She reports generalized aching in her shoulders. She also reports generalized malaise. She has been able to eat without nausea or vomiting. Her heart rate control has been much improved on current oral medications of diltiazem and metoprolol. Exam Narrative: Exam Narrative: She is alert and appears in no distress. Eyes normal. Oropharynx normal. Respirations with bibasilar decreased breath sounds and crackles up about 1/3 bilaterally. No wheezing. Cardiovascular: S1, S2, irregularly irregular. No murmur gallop or rub. Abdomen is soft without tenderness or mass. Extremities without significant edema. Const: Vital Signs, click to edit/add: Vital Signs - 24 hr 12/31/21 16:07 12/31/21 15:00 12/31/21 15:00 Temperature 97.5 F L Pulse Rate 72 Pulse Rate [Pulse Oximeter] 78 93 Respiratory Rate 20 Blood Pressure [Ri ght Arm] 120/84 Pulse Oximetry 89 Oxygen Delivery Me thod Room Air Oxygen Flow Rate 12/31/21 13:00 12/31/21 20:00 12/31/21 22:16 Temperature 97.8 F 97.7 F Pulse Rate 70 Pulse Rate [Pulse Oximeter] 69 72 Respiratory Rate 20 20 Blood Pressure [Ri ght Arm] 135/70 107/70 Pulse Oximetry 94 93 Oxygen Delivery Me thod Nasal Cannula Nasal Cannula Oxygen Flow Rate 1 1 12/31/21 22:19 12/31/21 23:50 01/01/22 04:00 Temperature 97.7 F 97.8 F Pulse Rate Pulse Rate [Pulse Oximeter] 72 80 64 Respiratory Rate 20 20 20 Blood Pressure [Ri ght Arm] 131/80 144/81 H Pulse Oximetry 93 94 Oxygen Delivery Me thod Nasal Cannula Nasal Cannula Oxygen Flow Rate 1 1 01/01/22 07:00 01/01/22 07:00 01/01/22 08:00 Temperature 97.5 F L Pulse Rate 64 Pulse Rate [Pulse Oximeter] 72 72 Respiratory Rate 16 16 Blood Pressure [Ri ght Arm] 144/65 H Pulse Oximetry 91 Oxygen Delivery Me thod Nasal Cannula Oxygen Flow Rate 1 01/01/22 12:00 Temperature 97.5 F L Pulse Rate Pulse Rate [Pulse Oximeter] 79 Respiratory Rate 18 Blood Pressure [Ri ght Arm] 135/70 Pulse Oximetry 93 Oxygen Delivery Me thod Nasal Cannula Oxygen Flow Rate 1 Documenting provider has reviewed patient's vital signs: yes Labs Labs: Laboratory Results - last 24 hr 01/01/22 01/01/22 01/01/22 08:23 08:23 08:23 WBC 9.14 RBC 4.37 Hgb 11.9 L Hct 38.4 MCV 88 MCH 27 MCHC 31 L RDW Coeff of Asiya 17.5 H Plt Count 301 Neut % (Auto) 76.5 H Lymph % (Auto) 11.9 L [place] % (Auto) 9.0 Eos % (Auto) 2.2 Baso % (Auto) 0.2 Neut # (Auto) 7.00 Lymph # (Auto) 1.10 [place] # (Auto) 0.80 Eos # (Auto) 0.20 Baso # (Auto) 0.02 Abs Immat Gran (auto) 0.02 INR 2.68 H Sodium 138 Potassium 4.7 Chloride 100 Carbon Dioxide 31 BUN 24 Creatinine 0.6 Estimated Creat Clear 50.18 Estimated GFR 96 Glucose 104 Calcium 9.0 C-Reactive Protein 5.5 H
--- NOTE | 2022-01-01 13:33 | PC.SOCIAL ---
Discharge plan- Went into patient room and spoke with Evon. Aramis () was not present in the room. Called Aramis over the phone and discussed the potential discharge plan for tomorrow. Aramis stated that 10:30 am to 11:00 am tomorrow (01-02-22) would work best for him to slate picker Evon from the [facility] and transport her to the [facility].
--- NOTE | 2022-01-01 15:53 | PC.SOCIAL ---
Spoke to admissions at the [facility]. Informed them that the current plan for discharge was tomorrow (01-02-22) around 10:30 am to 11:00 am. Informed admissions that Evon's Aramis would transport her to their facility at that time. Admissions asked that Evon's orders be faxed over as soon as possible after discharge from [facility].
[2022-01-01] MEDS: FUROSEMIDE 10 MG/ML inj 40 MG IVP (16:25)
[2022-01-01] MEDS: WARFARIN 2 MG TABLET 1 MG PO (16:30)
--- NOTE | 2022-01-01 18:34 | PC.NURSE ---
Addendum entered by Lillie Hilario RN 01/01/22 19:09: End of Shift: Patient pleasant, cooperative, and very drowsy today. Patient alert and oriented to self and . Patient vitally stable, lungs with crackles, BS WNL, IV's intact. Patient +1 pitting edema. Patient is 1 assist, walker, gb, and denies pain. Patient on 1 L with sats in low 90's, when sleeping patient was on 1.5 L. Patient urinating and tolerating regular diet. Left top of foot wound cleaned and new mepilex applied. BS's were 90,261,220. Original Note: End of Shift: Patient pleasant, cooperative, and very drowsy today. Patient alert and oriented to self and . Patient vitally stable, lungs with crackles, BS WNL, IV's intact. Patient +1 pitting edema. Patient is 1 assist, walker, gb, and denies pain. Patient on 1 L with sats in low 90's, when sleeping patient was on 1.5 L. Patient urinating and tolerating regular diet. Left top of foot wound cleaned and new mepilex applied.
[2022-01-01] MEDS: ROSUVASTATIN CALCIUM 10 MG TABLET PO (20:29)
[2022-01-02 04:00] VITALS: BP 138/83; PULSE 64; RESP 20; TEMP 36.6; O2SAT 93
--- NOTE | 2022-01-02 06:51 | PC.NURSE ---
Alert and orientedx3 with intermittent confusion. Vitals stable. On continuous tele; controlled a-flutter. More awake this AM compared to yesterday at the start of the shift; slept well. Denies pain or any concerns
[2022-01-02 06:54] LABS: Hemoglobin* 11.6 gm/dL (12.0-16.0); Immature Granulocytes Abs Auto 0.01 K/uL (0.00-0.30); Lymphocytes Percent Auto 10.4 % (20-44); Mean Corpuscular HGB Conc 31 gm/dL (32-36); Mean Corpuscular Hemoglobin 27 pg (26-34); Mean Corpuscular Volume 87 fL (80-100); Monocytes Percent Auto 6.9 % (0.0-11.0); Neutrophils Percent Auto 82.6 % (42.0-72.0); Platelet Count* 308 K/uL (140-440); Red Blood Count 4.35 m/uL (4.00-5.20); White Blood Count* 6.81 K/uL (4.50-11.00)
[2022-01-02 07:02] LABS: Slide Review Reflex No
[2022-01-02 07:11] VITALS: PULSE 67
[2022-01-02 07:14] LABS: INR 3.08 (0.91-1.10); Prothrombin Time 32.1 Seconds
[2022-01-02 07:17] LABS: C Reactive Protein* 5.9 mg/dL (0.5-1.0)
[2022-01-02 07:39] LABS: Erythrocyte SedimentationRate* 83 mm/hr (2-20)
[2022-01-02 08:00] VITALS: BP 145/81; PULSE 66; RESP 16; TEMP 36.4; O2SAT 96
[2022-01-02 08:10] LABS: Chloride* 102 mmol/L (96-114)
[2022-01-02 08:11] LABS: Sodium* 138 mmol/L (135-149)
[2022-01-02 08:13] LABS: Creatinine* 0.6 mg/dL (0.5-1.5); Est. Creatinine Clearance* 50.18; Estimated Glomerular Filt Rate 96 ml/min
[2022-01-02 08:14] LABS: Blood Urea Nitrogen* 32 mg/dL (7-30); Calcium* 9.3 mg/dL (8.4-10.6); Carbon Dioxide* 29 mmol/L (20-32); Glucose* 304 mg/dL (60-115)
--- NOTE | 2022-01-02 09:35 | PM.DS1 ---
DS: Providers Provider Date Seen: 01/02/22 Date of admission: 12/30/21 08:23 Primary care physician: Rah De Paz MD Admitting Clinician: Ismael Johansen MD Attending Physician on discharge: Ismael Johansen MD Date of Discharge: 01/02/22 DS: Diagnosis Discharge Diagnosis (1) Atrial flutter with rapid ventricular response: Status: Acute Problem details: This was thought to be the cause of her heart failure symptoms. Has now gotten good rate control with metoprolol 100 b.i.d. and diltiazem 120 mg b.i.d.. (2) Heart failure with preserved ejection fraction: Status: Acute Problem details: Chronic heart failure with pleural effusions thought secondary to poor heart rate control with atrial flutter. Continue diuresis and reassess heart failure with monitoring weight, electrolytes and consider chest x-ray in about a month to see if pleural effusions are better. (3) Poorly controlled diabetes mellitus: Status: Acute Problem details: Blood sugars have been fluctuating prior to this admission as well as during this admission with both high and low blood sugars. Patient may benefit from increase intensity of insulin therapy such as twice daily 70/30 insulin to minimize hyperglycemia and hypoglycemia (4) Polymyalgia rheumatica: Status: Acute Problem details: Patient has elevated inflammatory markers with prominent fatigue and malaise, axial aching. History of fibromyalgia as well. Would like a trial of steroids to see if she responds which would support a diagnosis of polymyalgia rheumatica. This will cause blood sugars to be elevated. (5) Dementia: Status: Acute Problem details: [place] 830 (6) Chronic anticoagulation: Status: Acute Problem details: Fluctuating INR likely in part due to heart failure causing liver congestion (7) Pulmonary disease: Status: Acute Problem details: CT imaging from October and current imaging suggest component of COPD as well as pulmonary fibrosis. (8) At risk for falling: Status: Acute Problem details: Needs standby assist (9) Foot ulcer, left: Status: Acute Problem details: Healing slowly (10) Hypoxia: Status: Acute Problem details: Improved but still will need oxygen as needed. DS: Summary Hospital Course Hospital Course: 71-year-old female admitted to the hospital with atrial flutter with rapid ventricular response. This ended up being relatively difficult to control requiring increasing doses of beta-fatuma and calcium channel fatuma. Eventually control is obtained by increasing metoprolol to 100 b.i.d. and diltiazem to 120 mg b.i.d.. She tolerated this without hypotension. She did not have pulmonary edema but did have moderate pleural effusions thought secondary to chronic heart failure. She was continued on diuresis for this. Hypoxia improved during her hospital stay. Blood sugars were initially low and then she received some prednisone and her blood sugars were too high. According to her this is been a ongoing problem for her. She has been on Levemir as her primary treatment for diabetes. To avoid highs and lows with her sugars she may need twice daily insulin such as insulin 70/30 b.i.d. Patient was complaining of profound fatigue an axial aching. She had elevated inflammatory markers including a sed rate of 85 and CRP of around 6. This was thought to be polymyalgia rheumatica. She had some improvement in her symptoms with initiation of prednisone. This will need close follow-up as an outpatient. Status at Discharge Functional status at discharge: uses cane/walker Overall status at discharge: patient is back to baseline Time Spent with Patient Time attestation: Total time spent providing and/or coordinating discharge services: 35 minutes Time spent: Greater than 30 minutes Exam Narrative: Exam Narrative: She is alert and appears in no distress. She is now breathing room air at mid 90s% oxygenation. Respirations are clear to auscultation except for a few basilar crackles and diminished breath sounds at lung bases. Cardiovascular S1, S2, irregularly irregular. Abdomen is soft without tenderness or mass. Const: Vital Signs, click to edit/add: Vital Signs - 24 hr 01/01/22 12:00 01/01/22 15:00 01/01/22 15:00 Temperature 97.5 F L Pulse Rate 60 Pulse Rate [Pulse Oximeter] 79 67 Respiratory Rate 18 24 Blood Pressure [Ri t Arm] 135/70 Pulse Oximetry 93 Oxygen Delivery Me thod Nasal Cannula Oxygen Flow Rate 1 01/01/22 16:00 01/01/22 20:00 01/01/22 22:03 Temperature 98.6 F 97.8 F Pulse Rate 60 Pulse Rate [Pulse Oximeter] 67 88 Respiratory Rate 24 20 Blood Pressure [Ri t Arm] 143/82 H 112/81 Pulse Oximetry 93 93 Oxygen Delivery Me thod Nasal Cannula Nasal Cannula Oxygen Flow Rate 1.5 1 01/01/22 22:09 01/01/22 23:58 01/02/22 04:00 Temperature 97.8 F 97.8 F Pulse Rate Pulse Rate [Pulse Oximeter] 88 63 64 Respiratory Rate 20 20 20 Blood Pressure [Ri ght Arm] 134/68 138/83 Pulse Oximetry 93 93 Oxygen Delivery Me thod Nasal Cannula Nasal Cannula Oxygen Flow Rate 1 1 Documenting provider has reviewed patient's vital signs: yes DS: Data Data Completed and Pending Labs on day of discharge: Labs from last 24 hours 01/02/22 01/02/22 01/02/22 05:48 05:48 05:48 WBC RBC Hgb Hct MCV MCH MCHC RDW Coeff of Asiya Plt Count Neut % (Auto) Lymph % (Auto) [place] % (Auto) Eos % (Auto) Baso % (Auto) Neut # (Auto) Lymph # (Auto) [place] # (Auto) Eos # (Auto) Baso # (Auto) Abs Immat Gran (auto) ESR 83 H INR Sodium 138 Potassium 5.0 Chloride 102 Carbon Dioxide 29 BUN 32 H Creatinine 0.6 Estimated Creat Clear 50.18 Estimated GFR 96 Glucose 304 H Calcium 9.3 C-Reactive Protein 5.9 H 01/02/22 01/02/22 05:48 05:48 WBC 6.81 RBC 4.35 Hgb 11.6 L Hct 38.0 MCV 87 MCH 27 MCHC 31 L RDW Coeff of Asiya 17.0 H Plt Count 308 Neut % (Auto) 82.6 H Lymph % (Auto) 10.4 L [place] % (Auto) 6.9 Eos % (Auto) 0.0 Baso % (Auto) 0.0 Neut # (Auto) 5.60 Lymph # (Auto) 0.70 L [place] # (Auto) 0.50 Eos # (Auto) 0.00 Baso # (Auto) 0.00 Abs Immat Gran (auto) 0.01 ESR INR 3.08 H Sodium Potassium Chloride Carbon Dioxide BUN Creatinine Estimated Creat Clear Estimated GFR Glucose Calcium C-Reactive Protein Imaging Echo: My impression: Echocardiogram showed stable findings with preserved ejection fraction and no marked valvular disease Discharge Plan Discharge Disposition: [facility] Date of Admission: 12/30/21 08:23 Attending Provider on Discharge: Ismael Johansen Primary Care Provider: Rah De Paz Condition: Improved Anticipated Discharge Date/Time: 01/02/22 11:00 Discharge Medications: New diltiazem HCl [DILT-XR] 120 mg Capsule,Ext.Rel 24h Degradable 120 mg PO BID Qty: 60 0RF magnesium oxide 400 mg (241.3 mg magnesium) Tablet 400 mg PO DAILY Qty: 30 0RF potassium chloride 10 mEq capsule, extended release 10 meq PO DAILY Qty: 30 2RF prednisone 20 mg tablet 20 mg PO DAILY Qty: 10 0RF metoprolol succinate 100 mg Tablet Extended Release 24 Hr 100 mg PO BID Qty: 60 0RF Continued aspirin 81 mg tablet,delayed release (DR/EC) 81 mg PO DAILY Label Comments: TAKE 1 TABLET BY MOUTH ONCE DAILY bupropion HCl 300 mg tablet extended release 24 hr 300 mg PO DAILY Label Comments: 1 tablet by mouth once a day cholecalciferol (vitamin D3) [Vitamin D3] 50 mcg (2,000 unit) capsule 2,000 unit PO DAILY Label Comments: TAKE 1 CAPSULE BY MOUTH ONCE DAILY insulin glargine 100 unit/mL solution 30 unit SUBCUT DAILY Label Comments: Inject 30 units subcutaneously once daily gabapentin 300 mg capsule 300 mg PO DAILY Label Comments: 1 capsule by mouth once a day in the morning AND 2 caps by mouth at bedtime duloxetine 60 mg capsule,delayed release(DR/EC) 120 mg PO DAILY Label Comments: TAKE 2 CAPSULES BY MOUTH ONCE DAILY sennosides [senna] 8.6 mg tablet 8.6 mg PO BID Label Comments: Take one tablet twice daily (DME) OneTouch Verio test strips Strip MISCELLANEOUS Label Comments: USE 1 STRIP TO CHECK GLUCOSE THREE TIMES DAILY acetaminophen [Pain Reliever Extra Strength] 500 mg tablet 1,000 mg PO TID PRN Label Comments: TAKE 2 TABLETS BY MOUTH TWICE DAILY NEEDED FOR PAIN rosuvastatin 10 mg tablet 10 mg PO HS Label Comments: TAKE 1 TABLET BY MOUTH ONCE DAILY insulin lispro 100 unit/mL solution 1 sliding scale dose continuous subcutaneous infusion TIDWMEAL furosemide 20 mg tablet 60 mg PO QAM Changed warfarin 1 mg tablet 1 mg PO QPM Qty: 30 0RF Label Comments: Take as directed Discontinued warfarin 2 mg tablet 2 mg PO MOTUTH metoprolol tartrate 75 mg tablet 75 mg PO BID Discharge Orders: Discharge Order (Routine); Ordered 01/02/22 Ordered By: Ismael Johansen Activity Restrictions/Additional Instructions: Lab tests in 3 days include INR and basic metabolic panel. Adjust warfarin to therapeutic INR. Patient will need ongoing assessment of heart failure with daily weights and monitoring of respiratory status. Consider chest x-ray and about 1 month to reassess pleural effusions. Close following of electrolytes. Needs ongoing assessment of heart rate control. Check blood sugar 4 times a day. Consider switching to twice daily insulin for better blood sugar control. Anticipate elevated blood sugars while on prednisone. Ongoing assessment of need for prednisone and dose of prednisone for tentative diagnosis of polymyalgia rheumatica. Follow Up Appointments: Rah De Paz MD [Primary Care Provider] - Forms: [facility] Info Instructions
--- NOTE | 2022-01-02 09:37 | PC.SOCIAL ---
Called Evon's Aramsi to inform him that Evon will need to discharge with oxygen and she will need a portable oxygen tank for the car ride. Aramis stated he is comfortable transporting her with oxygen. Provided Aramis with options on obtaining a portable oxygen tank. Aramis would like to garbage pick up man a portable oxygen tank from the [facility]. Called Laura in Admissions at [facility]. Pooja stated that she will get a portable oxygen tank ready for Aramis to garbage pick up man. Called Aramis back and informed him that the [facility] will have a portable oxygen tank ready and he should speak with the nurse, Terrie. Aramis confirmed he will garbage pick up man the portable oxygen tank and bring it to the [facility] for discharge today.
[2022-01-02] MEDS: SENNOSIDES 1 TAB TABLET PO (09:38)
[2022-01-02] MEDS: polyethylene glycoL 3350 17 GM PACK PO (09:39)
[2022-01-02] MEDS: ASPIRIN 81 MG TABLET EC PO (09:39)
[2022-01-02] MEDS: METOPROLOL SUCCINATE (XL) 100 MG TAB PO (09:40)
[2022-01-02] MEDS: POTASSIUM CHLORIDE 10 MEQ CAPSULE ER PO (09:40)
[2022-01-02] MEDS: MAGNESIUM OXIDE 400 MG TABLET PO (09:40)
[2022-01-02] MEDS: GABAPENTIN 300 MG CAPSULE PO (09:41)
[2022-01-02] MEDS: buPROPion XL 150 MG TABLET 300 MG PO (09:41)
[2022-01-02] MEDS: IPRAT-ALBUT 0.5-2.5 MG/3 ML NEB 1 NEB IH (09:43)
[2022-01-02] MEDS: FUROSEMIDE 10 MG/ML inj 40 MG IVP (10:34)
[2022-01-02] MEDS: predniSONE 20 MG TABLET PO (10:39)
[2022-01-02] MEDS: dilTIAZem 120 MG CAP.ER.24H PO (10:39)
--- NOTE | 2022-01-02 16:38 | PC.NURSE ---
Pt has extensive bruises noted on bilateral upper extremities. Mepilex CDI over blister on top of pt's left foot. BG 293, please see eMar for multiple medications provided, duo neb, 6 units of SS insulin and 25 units of levemir insulin. Pt's spouse Aramis provided with copy of pt's d/c information and medication list for his own records. Pt discharged via w/c to [facility] @ 11:48 am with her paperwork for facility and personal belongings. See telemetry data in EMR.
== END 2022-01-02 11:45 | DRG 309 ==
LOC: ED 12:34 → MEDSURG 13:02
PROVIDERS: Admitting Provider Family Medicine; Emergency Provider Family Medicine; PCP Family Medicine; Visit Provider Family Medicine
DX: I48.92 Unspecified atrial flutter (principal); I50.32 Chronic diastolic (congestive) heart failure; I48.91 Unspecified atrial fibrillation; I11.0 Hypertensive heart disease with heart failure; M35.3 Polymyalgia rheumatica; Z79.01 Long term (current) use of anticoagulants; E86.0 Dehydration; R09.02 Hypoxemia; E11.65 Type 2 diabetes mellitus with hyperglycemia; Z79.4 Long term (current) use of insulin; F03.90 Unspecified dementia, unspecified severity, without behavioral disturbance, psychotic disturbance, mood disturbance, and anxiety; L97.529 Non-pressure chronic ulcer of other part of left foot with unspecified severity; J84.10 Pulmonary fibrosis, unspecified; J44.9 Chronic obstructive pulmonary disease, unspecified; Z87.891 Personal history of nicotine dependence; I25.10 Atherosclerotic heart disease of native coronary artery without angina pectoris; K21.9 Gastro-esophageal reflux disease without esophagitis; F41.9 Anxiety disorder, unspecified; F32.A Depression, unspecified; E78.5 Hyperlipidemia, unspecified
CPT/HCPCS: 36415; 71046; 71260; 74177; 80048; 80076; 81001; 82947; 83605; 83735; 83880; 84443; 84484; 85025; 85379; 85610; 85651; 86140; 87086; 87502; 87635; 93005; 93306; 94640; 94761; 97110; 97116; 97162; 97165; 97530; 97535; 99284; 99285; G0378; A9270; J1940; J3475; J7050; J7120; J7512; Q9967